=== PATIENT | female | born 1965 | race Caucasian/White ===

== ENCOUNTER 2016-04-17 09:28 | Day surgery (SDC) | payer BC ==
[2016-04-16 08:25] VITALS: BMI 25.8
--- NOTE | 2016-04-17 09:18 | P.GSHP ---
History of Present Illness H&P Date: 04/17/16 CHIEF COMPLAINT: GERD HISTORY OF PRESENT ILLNESS: The patient is a 51-year-old female who presents reports gastroesophageal reflux disease. Upper endoscopy was offered for further evaluation and management. PAST MEDICAL HISTORY: Please see list. PAST SURGICAL HISTORY: Please see list. MEDICATIONS: Please see list. ALLERGIES: Please see list. SOCIAL HISTORY: No illicit drug use FAMILY HISTORY: No reports of Crohn disease or ulcerative colitis. REVIEW OF ORGAN SYSTEMS: CONSTITUTIONAL: No reports of fevers or chills. GI: Denies any blood in stools or constipation. PHYSICAL EXAM: VITAL SIGNS: Stable GENERAL: Well-developed and pleasant in no acute distress. HEENT: No scleral icterus. Extraocular movements grossly intact. Moist buccal mucosa. NECK: Supple without lymphadenopathy. CHEST: Unlabored respirations. Equal bilateral excursions. CARDIOVASCULAR: Regular rate and rhythm. Distal 2+ pulses. ABDOMEN: Soft, nondistended. MUSCULOSKELETAL: No clubbing, cyanosis, or edema. ASSESSMENT: 1. Gastroesophageal reflux disease PLAN: 1. Recommend proceeding with an upper endoscopy Past Medical History Past Medical History: GERD/Reflux Additional Past Medical History / Comment(s): CONSTIPATION, BLOATING History of Any Multi-Drug Resistant Organisms: None Reported Past Surgical History: Hysterectomy Additional Past Surgical History / Comment(s): JAW SX,. EGD. COLONOSCOPY Past Anesthesia/Blood Transfusion Reactions: Postoperative Nausea & Vomiting ( PONV) Past Psychological History: Anxiety, Depression Smoking Status: Former smoker Past Alcohol Use History: None Reported Additional Past Alcohol Use History / Comment(s): QUIT SMOKING 2005, SMOKED LESS THAN 1/2 PPD FROM AGE 22 (1986) Past Drug Use History: None Reported - Past Family History Mother Family Medical History: No Reported History Medications and Allergies Home Medications Medication Instructions Recorded Confirmed Type FLUoxetine HCL [PROzac] 40 mg PO HS 12/29/15 04/16/16 History Levothyroxine Sodium [Synthroid] 125 mcg PO DAILY 12/29/15 04/16/16 History SUMAtriptan SUCCINATE [Imitrex] 100 mg PO DIRECTED PRN 12/29/15 04/16/16 History Temazepam [Restoril] 7.5 mg PO HS PRN 12/29/15 04/16/16 History B Complex-Vit C-Vit E-Zinc [Z-Bec] 1 tab PO DAILY 03/28/16 04/16/16 History Hair Skin Nail Gummy 1 tab PO DAILY 03/28/16 04/16/16 History Allergies Allergy/AdvReac Type Severity Reaction Status Date / Time No Known Allergies Allergy Verified 04/16/16 08:17
[~2016-04-17 09:28] MED LIST: LACTATED RINGERS 1,000 ML IV SCH; LIDOCAINE 1% 20 ML VIAL (10MG/ML) FOR IV START INTRADERMA PRN
[2016-04-17 10:12] VITALS: RESP 16; TEMP 98.1
[2016-04-17] MEDS ORDERED: PROPOFOL 10 MG/ML 20 ML VIAL IV ONE (10:13)
[2016-04-17] MEDS ORDERED: LIDOCAINE 1% INJ 10MG/ML (20 ML MDV) ONE (10:13)
[2016-04-17] MEDS ORDERED: ONDANSETRON 4 MG/2 ML VIAL ONE (10:13)
--- NOTE | 2016-04-17 10:26 | P.PCN ---
Date of Procedure: 04/17/16 Description of Procedure: PREOPERATIVE DIAGNOSIS: Gastroesophageal reflux disease. Epigastric abdominal pain. Chronic nausea. POSTOPERATIVE DIAGNOSIS: Erosive esophagitis. Diaphragmatic hiatal hernia. Gastroesophageal reflux disease. Diffuse gastritis, superficial, chronic. Epigastric abdominal pain. Chronic nausea. OPERATION: Esophagogastroduodenoscopy with biopsies along antrum and esophagus. SURGEON: Nancy Ray MD ANESTHESIA: MAC. INDICATIONS: The patient is a 51-year-old female who presents with a history of reflux disease. Benefits and risks of the procedure were described. Informed consent was obtained. DESCRIPTION: The patient was brought into the endoscopy suite and laid in the left lateral decubitus position. An Olympus gastroscope was passed along the posterior oropharynx down to the distal esophagus where the squamocolumnar junction was encountered at 34 cm from the incisors. The stomach was entered and moderate bile reflux was found. Additional findings are listed below. Biopsies with cold forceps were obtained of the antrum. The first through third portion of the duodenum was examined and unremarkable. Retroflexion of the scope confirmed Hill grade 4 lower esophageal valve. The squamocolumnar junction demostrated LA grade B erosive esophagitis. The stomach was desufflated. The patient tolerated the procedure well. FINDINGS: Squamocolumnar junction 34 cm from the incisors. Diaphragmatic hiatus at 37 cm from the incisors. Hiatal hernia, 3 cm, fixed. Hill grade 4 lower esophageal valve. LA grade B erosive esophagitis. No active duodenitis. Diffuse gastritis. RECOMMENDATIONS: Recommend check magnesium level. Further recommendations pending results of pathology report. Upper endoscopy as needed.
[2016-04-17 10:41] VITALS: PULSE 75
[2016-04-17 11:41] VITALS: BP 109/69
== END 2016-04-17 11:36 | disposition home or self-care (01) ==
LOC: ORWHC2ENDO 09:28
PROVIDERS: ATTEND Surgery Plastic and Reconstructive Surgery
DX: K21.9 Gastro-esophageal reflux disease without esophagitis (principal); K22.10 Ulcer of esophagus without bleeding; K44.9 Diaphragmatic hernia without obstruction or gangrene; K29.50 Unspecified chronic gastritis without bleeding; R10.13 Epigastric pain; Z87.891 Personal history of nicotine dependence; F41.9 Anxiety disorder, unspecified; F32.9 Major depressive disorder, single episode, unspecified; Z79.02 Long term (current) use of antithrombotics/antiplatelets; Z79.899 Other long term (current) drug therapy
CPT/HCPCS: 88305; 84425; 83735; 88342; 43239; J2405; J2001; J2704

== ENCOUNTER → 2016-05-28 | Outpatient (CLI) | payer BC | LOC: LABWHC1 10:18 | PROVIDERS: ATTEND Surgery Plastic and Reconstructive Surgery | DX: E03.9 Hypothyroidism, unspecified (principal) | CPT/HCPCS: 36415; 84439; 84443 ==

== ENCOUNTER 2016-07-07 09:55 | Emergency (ER) | payer BC ==
[2016-07-07 10:00] VITALS: BP 125/74; PULSE 90; RESP 20; TEMP 97.5
[2016-07-07] MEDS ORDERED: PROPARACAINE 0.5% OPHTH DROPS 15 ML BTL RIGHT EYE STA (10:21)
--- NOTE | 2016-07-07 10:23 | ED ---
Eye Problem HPI - General Chief complaint: Eye Problems Stated complaint: Pain in eye Time Seen by Provider: 07/07/16 10:10 Source: patient, RN notes reviewed Mode of arrival: ambulatory Limitations: no limitations - History of Present Illness Initial comments: 51-year-old female presents to the emergency department with a chief complaint of right thigh pain. Patient states she has a history of problems with the right eye. Patient's states that she is on maintenance erythromycin and she sees the eye doctors who continued to treat her for cold sores and ulcers to the eye. Patient states that today she started to develop this pain to the eye changes in vision which is typical of her flareup of her chronic condition. Patient states she's been dealing with this for about 2 years. Patient states typically she gets a freezing drop that makes her eye feel better if she can get home and that she sees her doctor in the morning. Patient states she simply would just like a freeze pop. Patient states is exactly like her typical flareup and she just needs help getting home so that she can see the doctor. Patient states there is no trauma or injury. Patient states started TODAY. HE STATES MUCH LIKE HER TYPICAL EYE PROBLEMS.Patient denies any recent fever, chills, shortness of breath, chest pain, back pain, abdominal pain, nausea vomiting, numbness or tingling, dysuria or hematuria, constipation or diarrhea, headaches, or any other current symptoms. - Related Data Home Medications Medication Instructions Recorded Confirmed FLUoxetine HCL [PROzac] 40 mg PO HS 12/29/15 04/17/16 Levothyroxine Sodium [Synthroid] 125 mcg PO DAILY 12/29/15 04/17/16 SUMAtriptan SUCCINATE [Imitrex] 100 mg PO DIRECTED PRN 12/29/15 04/17/16 Temazepam [Restoril] 7.5 mg PO HS PRN 12/29/15 04/17/16 B Complex-Vit C-Vit E-Zinc [Z-Bec] 1 tab PO DAILY 03/28/16 04/17/16 Hair Skin Nail Gummy 1 tab PO DAILY 03/28/16 04/16/16 Previous Rx's Medication Instructions Recorded NIFEdipine 20 mg PO TID PRN #30 cap 04/30/16 Polyethylene Glycol 3350 [Miralax] 17 gm PO DAILY #255 gm 04/30/16 Allergies Allergy/AdvReac Type Severity Reaction Status Date / Time No Known Allergies Allergy Verified 07/07/16 10:00 Review of Systems ROS Statement: Those systems with pertinent positive or pertinent negative responses have been documented in the HPI. ROS Other: All systems not noted in ROS Statement are negative. Past Medical History Past Medical History: GERD/Reflux Additional Past Medical History / Comment(s): CONSTIPATION, BLOATING History of Any Multi-Drug Resistant Organisms: None Reported Past Surgical History: Hysterectomy Additional Past Surgical History / Comment(s): JAW SX,. EGD. COLONOSCOPY Past Anesthesia/Blood Transfusion Reactions: Postoperative Nausea & Vomiting ( PONV) Past Psychological History: Anxiety, Depression Smoking Status: Former smoker Past Alcohol Use History: None Reported Additional Past Alcohol Use History / Comment(s): QUIT SMOKING 2005, SMOKED LESS THAN 1/2 PPD FROM AGE 22 (1986) Past Drug Use History: None Reported - Past Family History Mother Family Medical History: No Reported History General Exam Limitations: no limitations General appearance: alert, in no apparent distress Head exam: Present: atraumatic, normocephalic, normal inspection Eye exam: Present: normal appearance, PERRL, EOMI. Absent: scleral icterus, conjunctival injection, periorbital swelling Expanded Visual acuity (R) = 20/: 50 Visual acuity (L) = 20/: 25 ENT exam: Present: normal exam, mucous membranes moist Neck exam: Present: normal inspection. Absent: tenderness, meningismus, lymphadenopathy Respiratory exam: Present: normal lung sounds bilaterally. Absent: respiratory distress, wheezes, rales, rhonchi, stridor Cardiovascular Exam: Present: regular rate, normal rhythm, normal heart sounds. Absent: systolic murmur, diastolic murmur, rubs, gallop, clicks Neurological exam: Present: alert, oriented X3 Psychiatric exam: Present: normal affect, normal mood Skin exam: Present: warm, dry, intact, normal color. Absent: rash Course Vital Signs 07/07/16 09:58 Temperature 97.5 F L Pulse Rate 90 Respiratory 20 Rate Blood Pressure 125/74 O2 Sat by Pulse 98 Oximetry Medical Decision Making - Medical Decision Making 51-year-old female presents emergency Department chief complaint of right eye pain. This time patient was given proparacaine which did help her symptoms. We then underwent a with lamp examination. At this time we discussed continuing to use her home erythromycin and follow-up with her eye doctor in the morning. We did give her on-call ophthalmology as well and today she cannot get into her own doctor. We discussed return parameters were discussed expected outcome and all the patient's questions. She stated that she understood and is in agreement plan. This time she will be discharged home. Disposition Clinical Impression: Acute right eye pain Disposition: HOME SELF-CARE Condition: Stable Instructions: Eye Lubricant (Into the eye) Additional Instructions: Please use medication as discussed. Please follow up with family doctor if symptoms have not improved over the next two days. Please return to the emergency room if your symptoms increase or worsen or for any other concerns. Referrals: Ayaan Morales MD [Primary Care Provider] - 1-2 days
== END 2016-07-07 10:44 | disposition home or self-care (01) ==
LOC: EC 09:55
DX: H57.11 Ocular pain, right eye (principal); M79.651 Pain in right thigh; F41.9 Anxiety disorder, unspecified; F32.9 Major depressive disorder, single episode, unspecified; Z87.891 Personal history of nicotine dependence; Z79.899 Other long term (current) drug therapy
CPT/HCPCS: 99283

== ENCOUNTER → 2016-10-09 | Outpatient (CLI) | payer BC ==
--- NOTE | 2016-10-09 15:00 | MR ---
EXAMINATION TYPE: MR brain wo/w con DATE OF EXAM: 10/09/2016 COMPARISON: NONE HISTORY: Headaches, R 51, H 57.13 TECHNIQUE: Multiplanar, multisequence images of the brain and brainstem is performed without and with IV contras t, utilizing 15 mL intravenous MultiHance . FINDINGS: Diffusion weighted images demonstrate no evidence of a recent infarct or other diffusion ab normality. There is no extra-axial fluid collection. Periventricular white matter shows hyperintens ities and T2 and inversion recovery sequences in the frontoparietal regions, there are approximately 10-20 lesions, the largest in the left frontal lobe measures 8 to 9 mm in largest on the right in the frontal lobe measures approximately 7 mm. There is no abnormal enhancement following contrast admini stration. The ventricular system and cisternal spaces are normal in size and appearance. The brain v olume is age appropriate. At the upper aspect of the brain on inversion recovery sequences suspect there is artifact over the p osterior parietal region on the right, findings thought possibly related to field inhomogeneity. Midline structures demonstrate normal morphology. The craniocervical junction appears within normal limits. Post contrast images demonstrate no abnormal enhancement. The dural venous sinuses appear pa tent. The visualized sinuses are clear and the globes are intact. IMPRESSION: Nonspecific white matter demyelination. Consider multiple sclerosis. Suspect there is art ifact described.
== END | disposition home or self-care (01) ==
LOC: RADMRIMAIN 13:11
PROVIDERS: ATTEND Ophthalmology
DX: G37.9 Demyelinating disease of central nervous system, unspecified (principal); G35 Multiple sclerosis; R90.82 White matter disease, unspecified; H57.13 Ocular pain, bilateral
CPT/HCPCS: 70553; A9577

== ENCOUNTER 2017-01-02 09:56 | Day surgery (SDC) | payer BC ==
[2017-01-01 08:32] VITALS: BMI 25.8
[~2017-01-02 09:56] MED LIST changes: -LIDOCAINE 1% 20 ML VIAL (10MG/ML) FOR IV START INTRADERMA PRN
[2017-01-02 10:22] VITALS: RESP 16; TEMP 97.9
[2017-01-02] MEDS ORDERED: LIDOCAINE 1% 20 ML VIAL (10MG/ML) FOR IV START INTRADERMA ONE (10:45)
--- NOTE | 2017-01-02 11:18 | P.PCN ---
Date of Procedure: 01/02/17 Procedure(s) Performed: Procedure=1-lumbar puncture . Preoperative diagnoses= multiple sclerosis. Postoperative diagnosis= multiple sclerosis. Anesthesia= IV sedation with Versed 2 mg and fentanyl 100 mcg , and local lidocaine infiltration 1% 2 mL for skin and subcu infiltration. Condition= stable. Complications=none. Indication for the procedure= patient with a history of symptoms suggestive of multiple sclerosis and she was referred to have a lumbar puncture for diagnostic study procedure risk and benefits and alternatives discussed with the patient and she agreed with the preceding, Description of the procedure= patient in the procedure room sitting position and monitors applied, the back prepped with chlorhexidine x 3, sterile technique, local infiltration of the skin and subcu interstitial with lidocaine 1% 2 mL, then 22-gauge quickie Needle advanced slowly at L4- 5 interlaminar space, the cerebrospinal fluid was clear, and no heme no paresthesia, a total of 10 mL of clear cerebrospinal fluid collected in 4 different tubes, the needle removed, Band-Aid applied , patient tolerated the procedure well without any complications, and further management as per her neurologist
[2017-01-02] MEDS ORDERED: IV FLUID CONTINUATION 1,000 ML IV ONE (11:36)
[2017-01-02 11:56] VITALS: BP 99/60; PULSE 75
[2017-01-02 12:28] LABS: ALT 89 U/L (9-52); AST 52 U/L (14-36)
[2017-01-02 12:31] LABS: Rheumatoid Factor, Qnt <9 IU/mL (<12)
[2017-01-02 12:35] LABS: Glucose,CSF 47 mg/dL (40-70)
[2017-01-02 13:59] LABS: Appearance,CSF Clear
[2017-01-02 15:41] LABS: Treponemal Ab Non-Reactive (Non-Reactive)
[2017-01-02 17:21] LABS: ANA w/Reflex to Titer NEGATIVE (NEGATIVE); RNP AB Interpretation NEGATIVE (NEGATIVE)
[2017-01-03 12:08] LABS: Lyme IgG/IgM Interp NEGATIVE (NEGATIVE)
[2017-01-04 20:52] LABS: Lyme Specimen Source Not Provided
[2017-01-06 13:31] LABS: Immunoglobulin G 928 mg/dL (700 - 1600)
== END 2017-01-02 12:15 | disposition home or self-care (01) ==
LOC: ORPAIN 09:56
PROVIDERS: ATTEND Specialist
DX: G35 Multiple sclerosis (principal); E03.9 Hypothyroidism, unspecified
CPT/HCPCS: 36415; 62270; 82040; 82042; 82164; 82306; 82784; 82945; 83873; 83916; 84157; 84439; 84443; 84450; 84460; 85613; 85730; 85732; 86038; 86225; 86235; 86431; 86592; 86618; 86780; 87476; 88108; 89050; 99152

== ENCOUNTER → 2017-01-02 | Outpatient (CLI) | payer BC | END | disposition home or self-care (01) | LOC: LABWHC1 09:39 | PROVIDERS: ATTEND Psychiatry & Neurology Neurology | DX: G35 Multiple sclerosis (principal); E55.9 Vitamin D deficiency, unspecified | CPT/HCPCS: 36415; 82306; 88108 ==

== ENCOUNTER → 2017-07-26 | Outpatient (CLI) | payer BC | END | disposition home or self-care (01) | LOC: LABWHC1 09:43 | PROVIDERS: ATTEND Family Medicine | DX: Z53.9 Procedure and treatment not carried out, unspecified reason (principal) ==

== ENCOUNTER → 2017-08-11 | Outpatient (CLI) | payer BC ==
[2017-08-11 09:40] LABS: Basophils # (A) 0.1 k/uL (0-0.2); Basophils % (A) 1 %; Eosinophils # (A) 0.3 k/uL (0-0.7); Eosinophils % (A) 4 %; HCT 39.8 % (34.0-46.0); Lymphocytes # (A) 1.8 k/uL (1.0-4.8); Lymphocytes % (A) 25 %; MCH 31.8 pg (25.0-35.0); MCHC 32.8 g/dL (31.0-37.0); MCV 96.9 fL (80.0-100.0); Mean Platelet Volume 7.8; Monocytes # (A) 0.5 k/uL (0-1.0); Monocytes % (A) 6 %; Neutrophils # (A) 4.4 k/uL (1.3-7.7); Neutrophils % (A) 62 %; Platelet Count 370 k/uL (150-450); RBC 4.11 m/uL (3.80-5.40); RDW 12.7 % (11.5-15.5); WBC 7.2 k/uL (3.8-10.6)
[2017-08-11 09:44] LABS: ALT 82 U/L (9-52); AST 49 U/L (14-36); Albumin 4.4 g/dL (3.5-5.0); Alkaline Phosphatase 159 U/L (38-126); Anion Gap 14 mmol/L; Blood Urea Nitrogen 17 mg/dL (7-17); Calcium 9.4 mg/dL (8.4-10.2); Carbon Dioxide 23 mmol/L (22-30); Chloride 107 mmol/L (98-107); Cholesterol 303 mg/dL (<200); Glucose 80 mg/dL (74-99); HDL Cholesterol 55 mg/dL (40-60); LDL Cholesterol,Calculated 181 mg/dL (0-99); Magnesium 2.2 mg/dL (1.6-2.3); Potassium 4.5 mmol/L (3.5-5.1); Sodium 144 mmol/L (137-145); Total Bilirubin 0.3 mg/dL (0.2-1.3); Total Protein 6.8 g/dL (6.3-8.2); Triglycerides 335 mg/dL (<150)
[2017-08-11 09:54] LABS: T4, Free (Free Thyroxine) 0.89 ng/dL (0.78-2.19)
== END | disposition home or self-care (01) ==
LOC: LABWHC1 08:08
PROVIDERS: ATTEND Family Medicine
DX: E55.9 Vitamin D deficiency, unspecified (principal); B00.52 Herpesviral keratitis; G43.909 Migraine, unspecified, not intractable, without status migrainosus; Z71.3 Dietary counseling and surveillance
CPT/HCPCS: 36415; 80053; 80061; 83735; 84439; 84443; 85025

== ENCOUNTER → 2017-09-23 | Outpatient (CLI) | payer BC ==
[2017-09-23 09:07] LABS: Albumin 4.2 g/dL (3.5-5.0); Bilirubin, Delta 0.2 mg/dL (0.0-0.2); Total Bilirubin 0.2 mg/dL (0.2-1.3); Total Protein 6.7 g/dL (6.3-8.2)
[2017-09-23 09:24] LABS: T4, Free (Free Thyroxine) 0.78 ng/dL (0.78-2.19)
== END | disposition home or self-care (01) ==
LOC: LABWHC1 07:10
PROVIDERS: ATTEND Family Medicine
DX: E03.9 Hypothyroidism, unspecified (principal); E78.5 Hyperlipidemia, unspecified; R94.5 Abnormal results of liver function studies; Z79.899 Other long term (current) drug therapy
CPT/HCPCS: 36415; 80076; 84439; 84443; 84481

== ENCOUNTER → 2017-10-30 | Outpatient (CLI) | payer BC ==
--- NOTE | 2017-10-31 11:20 | MM ---
Reason for exam: screening (asymptomatic). Last mammogram was performed 4 years and 6 months ago. History: Patient is postmenopausal. Physical Findings: A clinical breast exam by your physician is recommended on an annual basis and results should be correlated with mammographic findings. MG Screening Mammo w CAD Bilateral CC and MLO view(s) were taken. Prior study comparison: April 29, 2013, bilateral digital screening mammo w/CAD. April 09, 2011, bilateral digital screening mammo w/CAD. The breast tissue is heterogeneously dense. This may lower the sensitivity of mammography. No suspicious abnormality. No significant changes when compared with prior studies. ASSESSMENT: Negative, BI-RAD 1 RECOMMENDATION: Routine screening mammogram of both breasts in 1 year.
== END | disposition home or self-care (01) ==
LOC: RADMAMWWP 14:36
PROVIDERS: ATTEND Family Medicine
DX: Z12.31 Encounter for screening mammogram for malignant neoplasm of breast (principal)
CPT/HCPCS: 77067

== ENCOUNTER 2022-07-11 14:01 | Emergency (ER) | payer BC ==
[2022-07-11 14:17] VITALS: BP 98/63; PULSE 97; RESP 20; TEMP 97.9
[2022-07-11] MEDS ORDERED: ACETAMINOPHEN TAB 500 MG TAB PO STA (14:45)
[2022-07-11] MEDS ORDERED: LIDOCAINE 1% INJ 10MG/ML (30 ML VIAL-PF) SQ ONE (14:46)
--- NOTE | 2022-07-11 15:21 | CT ---
EXAMINATION TYPE: CT brain meri zuniga con DATE OF EXAM: 07/11/2022 COMPARISON: None HISTORY: fall CT DLP: combined DLP 1152.[address] of the brain was performed. The ventricles, basal cisterns and sulci overlying the cerebral convexities demonstrate mild enlargem ent. There is no evidence for intracranial hemorrhage or sulcal effacement. There is decreased attenuatio n about the periventricular white matter and deep white matter of both cerebral hemispheres, compatib le with chronic small vessel ischemia. No mass effects are seen. If symptoms persist consider MRI. Osseous calvarium is intact. IMPRESSION: 1. Age related atrophic and chronic small vessel ischemic change without acute intracranial process seen at this time. CT Cervical Spine: Unenhanced CT of the cervical spine was performed with bone and soft tissue window settings submitted . Coronal and sagittal reconstruction is obtained. There is normal alignment and prevertebral soft tissues. No evidence for acute cervical fracture . Scattered degenerative disc disease and spondylosis. Biapical scarring. IMPRESSION: 1. No evidence for acute fracture or subluxation of the cervical spine.
--- NOTE | 2022-07-11 15:37 | CT ---
EXAMINATION TYPE: CT facial bones wo con DATE OF EXAM: 07/11/2022 COMPARISON: None HISTORY: fall, pain CT DLP: combined DLP 1152.3 mGycm Automated exposure control for dose reduction was used. TECHNIQUE: CT scan of the sinuses is performed without contrast, axial images are obtained, coronal r eformatted images are also reviewed. FINDINGS: The paranasal sinuses including the frontal, ethmoid, sphenoid, and maxillary sinuses bila terally are well-aerated without abnormal opacification. The ostiomeatal complex is patent bilateral ly on the coronal images. Small bimal bullosa on the right and moderate size bimal bullosa on the l eft. Visualized portion of mastoid air cells show no abnormal opacification. The globes are intact bilate rally. There is hypertrophic arthropathy of the facet joints greater on the left. There is a small amount of subcutaneous edema and emphysema along the lateral margin of the left orbit. IMPRESSION: 1. Soft tissue injury along the lateral margin of the left orbit
--- NOTE | 2022-07-11 15:40 | XR ---
EXAMINATION TYPE: XR shoulder complete LT DATE OF EXAM: 07/11/2022 COMPARISON: NONE HISTORY: Pain TECHNIQUE: Three views are submitted. FINDINGS: The osseous structures are intact. There is no acute fracture or dislocation. The AC joint arthropa thy. Surgical clips left axilla. Soft tissue edema overlying the AC joint. IMPRESSION: 1. No acute process.
--- NOTE | 2022-07-11 15:51 | ED ---
Fall HPI - General Chief Complaint: Fall Stated Complaint: fall - head laceration Time Seen by Provider: 07/11/22 14:28 Source: patient, family Mode of arrival: wheelchair - History of Present Illness Initial Comments: Patient is a 57-year-old female who presents to the emergency department for a fall. Patient was sunbathing in a chair laying on her back. She went to flip onto her abdomen when she landed on the concrete. Patient hit the left side of her face on the concrete. There was potential loss of consciousness for a couple seconds. Patient is not on blood thinners. Patient reports pain in her face where the impact was. She has swelling and bruising to periorbital region of left eye with small laceration. Tetanus is up-to-date. No eye pain, redness. No double vision, blurry vision. No nausea or vomiting. Tetanus is up-to-date. Patient also has pain in her left shoulder with abrasion. She has abrasion to right knee with minimal pain. - Related Data Home Medications Medication Instructions Recorded Confirmed FLUoxetine HCL [PROzac] 40 mg PO HS 12/29/15 01/01/17 Levothyroxine Sodium [Synthroid] 125 mcg PO DAILY 12/29/15 01/01/17 SUMAtriptan succinate [Imitrex] 100 mg PO DIRECTED PRN 12/29/15 01/02/17 Temazepam [Restoril] 7.5 mg PO HS PRN 12/29/15 01/01/17 B Complex-Vit C-Vit E-Zinc [Z-Bec] 1 tab PO DAILY 03/28/16 01/01/17 Hair Skin Nail Gummy 1 tab PO DAILY 03/28/16 01/01/17 Previous Rx's Medication Instructions Recorded NIFEdipine [Procardia] 20 mg PO TID PRN #30 cap 04/30/16 Allergies Allergy/AdvReac Type Severity Reaction Status Date / Time No Known Allergies Allergy Verified 01/06/17 11:19 Review of Systems ROS Statement: Those systems with pertinent positive or pertinent negative responses have been documented in the HPI. ROS Other: All systems not noted in ROS Statement are negative. Past Medical History Past Medical History: GERD/Reflux, Neurologic Disorder, Thyroid Disorder Additional Past Medical History / Comment(s): migraines History of Any Multi-Drug Resistant Organisms: None Reported Past Surgical History: Hysterectomy Additional Past Surgical History / Comment(s): JAW SX,. EGD. COLONOSCOPY Past Anesthesia/Blood Transfusion Reactions: Postoperative Nausea & Vomiting (PONV) Past Psychological History: Anxiety, Depression Past Alcohol Use History: None Reported Past Drug Use History: None Reported - Past Family History Mother Family Medical History: Cancer General Exam Limitations: no limitations General appearance: alert, in no apparent distress Head exam: Present: atraumatic, normocephalic, normal inspection Eye exam: Present: normal appearance, PERRL, EOMI, periorbital swelling (moderate swelling + bruising, mostly in the 4-5 oclock region with 1cm laceration), other. Absent: scleral icterus, conjunctival injection Neck exam: Present: normal inspection, full ROM. Absent: tenderness, meningismus, lymphadenopathy Respiratory exam: Present: normal lung sounds bilaterally. Absent: respiratory distress, wheezes, rales, rhonchi, stridor Cardiovascular Exam: Present: regular rate, normal rhythm, normal heart sounds. Absent: systolic murmur, diastolic murmur, rubs, gallop, clicks Left Shoulder Exam: Present: full ROM, abrasion. Absent: tenderness, swelling, laceration, ecchymosis, crepitus, dislocation, erythema, tenderness over AC joint Neuro motor exam: Present: wrist extension intact, thumb opposition intact, thumb IP flexion intact, thumb adduction intact, fingers 2-5 abduction intact Vascular: Present: normal capillary refill Right Upper Leg exam: Present: normal inspection, full ROM. Absent: tenderness, swelling Knee exam: Present: full ROM, abrasion. Absent: tenderness, swelling Lower Leg exam: Present: normal inspection, full ROM. Absent: tenderness, swelling Neurological exam: Present: alert, oriented X3, CN II-XII intact Psychiatric exam: Present: normal affect, normal mood Skin exam: Present: warm, dry, intact, normal color. Absent: rash Course Vital Signs 07/11/22 14:13 Temperature 97.9 F Pulse Rate 97 Respiratory 20 Rate Blood Pressure 98/63 O2 Sat by Pulse 95 Oximetry Procedures - Laceration Laceration #1 Indication: laceration Site: face Size (cm): 1 Description: irregular Anesthesia Technique: local infiltration Pre-repair: wound explored, irrigated extensively Type of Sutures: nylon Size of Sutures: 6-0 Technique: simple, interrupted Patient Tolerated Procedure: well, no complications Medical Decision Making - Medical Decision Making Was pt. sent in by a medical professional or institution (AMANDA Zuluaga, SCHOOL LIBRARIAN, urgent care, hospital, or group home...) When possible be specific @ -[No] Did you speak to anyone other than the patient for history (EMS, parent, family, police, friend...)? What history was obtained from this source @ -[No] Did you review nursing and triage notes (agree or disagree)? Why? @ -[I reviewed and agree with nursing and triage notes] Were old charts reviewed (outside hosp., previous admission, EMS record, old EKG, old radiological studies, urgent care reports/EKG's, group home records)? Report findings @ -[No old charts were reviewed] Differential Diagnosis (chest pain, altered mental status, abdominal pain women, abdominal pain men, vaginal bleeding, weakness, fever, dyspnea, syncope, headache, dizziness, GI bleed, back pain, seizure, CVA, palpatations, mental health)? @ -Differential Headache: Migraine, tension, cluster, carbon monoxide, central venous thrombosis, pension karma temporal arteritis, acute closure glaucoma, intercranial hemorrhage, mastoiditis, sinusitis, head injury, this is not meant to be an all-inclusive list. EKG interpreted by me (3pts min.). @ -[As above] X-rays interpreted by me (1pt min.). @ -Yes, left shoulder x-ray negative for fracture and dislocation CT interpreted by me (1pt min.). @ -Yes, CT brain and C-spine negative for acute process. CT of the facial bone show soft tissue injury without fracture. U/S interpreted by me (1pt. min.). @ -[None done] What testing was considered but not performed or refused? (CT, X-rays, U/S, labs)? Why? @ -[None] What meds were considered but not given or refused? Why? @ -[None] Did you discuss the management of the patient with other professionals (professionals i.e. AMANDA Zuluaga, SCHOOL LIBRARIAN, lab, RT, psych nurse, social worker aide, brick yard hand, teacher, community reinvestment act officer, director of casework department)? Give summary @ -[No] Was smoking cessation discussed for >3mins.? @ -[No] Was critical care preformed (if so, how long)? @ -[No] Were there social determinants of health that impacted care today? How? (Homelessness, low income, unemployed, alcoholism, drug addiction, transportation, low edu. Level, literacy, decrease access to med. care, assisted, rehab)? @ -[No] Was there de-escalation of care discussed even if they declined (Discuss DNR or withdrawal of care, Hospice)? DNR status @ -[No] What co-morbidities impacted this encounter? (DM, HTN, Smoking, COPD, CAD, Cancer, CVA, ARF, Chemo, Hep., AIDS, mental health diagnosis, sleep apnea, morbid obesity)? @ -[None] Was patient admitted / discharged? Hospital course, mention meds given and route, prescriptions, significant lab abnormalities, going to OR and other pertinent info. @ -Patient presenting with facial injury after fall. Patient has left periorbital swelling and ecchymosis mostly at the 4 to 5 o'clock position. She has small laceration which was irrigated thoroughly and well approximated with one suture. Tetanus update is not indicated. Left shoulder xray negative for fracture and dislocation. CT brain and C-spine negative for acute process. CT of the facial bones shows soft tissue injury without fracture. Pain significantly improved Tylenol. Patient is alert and oriented, no vomiting. She is in stable medical condition for discharge. Wound care discussed in detail. Undiagnosed new problem with uncertain prognosis? @ -[No] Drug Therapy requiring intensive monitoring for toxicity (Heparin, Nitro, Insulin, Cardizem)? @ -[No] Were any procedures done? @ Yes, laceration repair Diagnosis/symptom? @ -Head injury, laceration, fall Acute, or Chronic, or Acute on Chronic? @ -Acute Uncomplicated (without systemic symptoms) or Complicated (systemic symptoms)? @ -uncomplicated Side effects of treatment? @ -[No] Exacerbation, Progression, or Severe Exacerbation? @ -[No] Poses a threat to life or bodily function? How? (Chest pain, [place], [place], pneumonia, PE, COPD, DKA, ARF, appy, cholecystitis, CVA, Diverticulitis, Homicidal, Suicidal, threat to staff... and all critical care pts) @ -[No] Dr. Morton is my attending Disposition Clinical Impression: Fall, Head injury, Laceration Disposition: HOME SELF-CARE Condition: Good Instructions (If sedation given, give patient instructions): Care For Your Stitches (ED), Laceration (ED), Concussion (ED), Fall Prevention (ED) Additional Instructions: Ice injury especially in the next 2 days. Keep wound clean and dry. Return for suture removal in 5 days. Report anti-inflammatory medications such as Motrin, Aleve, Advil, Excedrin for the next 48 hours due to head injury. Take Tylenol for pain. Follow-up with primary care provider in one to 2 days. Report back to the emergency department if you experience new, concerning, or worsening symptoms. Is patient prescribed a controlled substance at d/c from ED?: No Referrals: Ayaan Morales MD [Primary Care Provider] - 1-2 days
== END 2022-07-11 16:21 | disposition home or self-care (01) ==
LOC: EC 14:01
DX: S01.81XA Laceration without foreign body of other part of head, initial encounter (principal); E07.9 Disorder of thyroid, unspecified; F41.9 Anxiety disorder, unspecified; F32.A Depression, unspecified; Z79.890 Hormone replacement therapy; W07.XXXA Fall from chair, initial encounter; Y31.XXXA Falling, lying or running before or into moving object, undetermined intent, initial encounter
CPT/HCPCS: 73030; 72125; 70486; 70450; 99284; 12011; J2001

== ENCOUNTER 2024-03-07 15:43 | Emergency (ER) | payer BC ==
[2024-03-07 15:47] VITALS: RESP 18
[2024-03-07] MEDS: LIDOCAINE 1% INJ 10MG/ML (20 ML MDV) SQ ONE (16:21)
--- NOTE | 2024-03-07 16:26 | ED ---
General Adult HPI - General Chief complaint: Skin/Abscess/Foreign Body Stated complaint: Infected finger Time Seen by Provider: 03/07/24 16:05 Source: patient Mode of arrival: ambulatory Limitations: no limitations - History of Present Illness Initial comments: 58-year-old female presenting with chief complaint of pain to the right index finger. This has been ongoing for about 3 days. She has redness tenderness and swelling near the tip of the finger. There is also a pustule visible along the nail. She was seen at Dr. Prakash's office on , started on Bactrim. Now having some pain that travels down the finger. No fevers. History of MRSA. - Related Data Home Medications Medication Instructions Recorded Confirmed FLUoxetine HCL [PROzac] 40 mg PO HS 12/29/15 01/01/17 Levothyroxine Sodium [Synthroid] 125 mcg PO DAILY 12/29/15 01/01/17 SUMAtriptan succinate [Imitrex] 100 mg PO DIRECTED PRN 12/29/15 01/02/17 Temazepam [Restoril] 7.5 mg PO HS PRN 12/29/15 01/01/17 B Complex-Vit C-Vit E-Zinc [Z-Bec] 1 tab PO DAILY 03/28/16 01/01/17 Hair Skin Nail Gummy 1 tab PO DAILY 03/28/16 01/01/17 Previous Rx's Medication Instructions Recorded NIFEdipine [Procardia] 20 mg PO TID PRN #30 cap 04/30/16 Allergies Allergy/AdvReac Type Severity Reaction Status Date / Time No Known Allergies Allergy Verified 03/07/24 15:47 Review of Systems ROS Statement: Those systems with pertinent positive or pertinent negative responses have been documented in the HPI. ROS Other: All systems not noted in ROS Statement are negative. Past Medical History Past Medical History: GERD/Reflux, Neurologic Disorder, Thyroid Disorder Additional Past Medical History / Comment(s): migraines History of Any Multi-Drug Resistant Organisms: None Reported Past Surgical History: Hysterectomy Additional Past Surgical History / Comment(s): JAW SX,. EGD. COLONOSCOPY Past Anesthesia/Blood Transfusion Reactions: Postoperative Nausea & Vomiting (PONV) Past Psychological History: Anxiety, Depression Past Alcohol Use History: None Reported Past Drug Use History: None Reported - Past Family History Mother Family Medical History: Cancer General Exam Limitations: no limitations General appearance: alert, in no apparent distress Head exam: Present: atraumatic, normocephalic, normal inspection Eye exam: Present: normal appearance, EOMI Neck exam: Present: normal inspection. Absent: meningismus Respiratory exam: Absent: respiratory distress Right Hand Wrist exam: Present: erythema (Swelling and tenderness to the second finger particularly the distal end) Neurological exam: Present: alert, oriented X3 Psychiatric exam: Present: normal affect, normal mood Skin exam: Present: erythema Course Vital Signs 03/07/24 03/07/24 15:44 17:19 Temperature 98.4 F 97.9 F Pulse Rate 102 H 99 Respiratory 18 18 Rate Blood Pressure 105/69 110/72 O2 Sat by Pulse 94 L 97 Oximetry Procedures - Incision & Drainage Consent Obtained: verbal consent Site: hand (Right index finger) Anesthetic Used: lidocaine 1%, without epi Scalpel Used: #11 Culture Obtained?: Yes Patient Tolerated Procedure: well - Nerve Block Consent Obtained: verbal consent Local Anesthetic Used: Lidocaine 1% Side: right Nerve Blocks: digital Procedure Successful: Yes Complications: none Patient Tolerated Procedure: well Medical Decision Making - Medical Decision Making Was pt. sent in by a medical professional or institution (Dr. PA, MAGICIAN HELPER, urgent care, hospital, or halfway...) When possible be specific @ -No Did you speak to anyone other than the patient for history (EMS, parent, family, police, friend...)? What history was obtained from this source @ -No Did you review nursing and triage notes (agree or disagree)? Why? @ -I reviewed and agree with nursing and triage notes Were old charts reviewed (outside hosp., previous admission, EMS record, old EKG, old radiological studies, urgent care reports/EKG's, halfway records)? Report findings @ -No old charts were reviewed Differential Diagnosis (chest pain, altered mental status, abdominal pain women, abdominal pain men, vaginal bleeding, weakness, fever, dyspnea, syncope, headache, dizziness, GI bleed, back pain, seizure, CVA, palpatations, mental health, musculoskeletal)? @ -Differential includes felon, paronychia, fracture, this is not an all- inclusive list EKG interpreted by me (3pts min.). @ -As above X-rays interpreted by me (1pt min.). @ -X-ray shows no acute osseous abnormality CT interpreted by me (1pt min.). @ -None done U/S interpreted by me (1pt. min.). @ -None done What testing was considered but not performed or refused? (CT, X-rays, U/S, labs)? Why? @ -None What meds were considered but not given or refused? Why? @ -None Did you discuss the management of the patient with other professionals (professionals i.e. DrDebbie, PA, MAGICIAN HELPER, lab, RT, psych nurse, social science instructor, firebrick layer helper, teacher, police liaison officer, ed case manager)? Give summary @ -No Was smoking cessation discussed for >3mins.? @ -No Was critical care preformed (if so, how long)? @ -No Were there social determinants of health that impacted care today? How? (Homelessness, low income, unemployed, alcoholism, drug addiction, transportation, low edu. Level, literacy, decrease access to med. care, retirement, rehab)? @ -No Was there de-escalation of care discussed even if they declined (Discuss DNR or withdrawal of care, Hospice)? DNR status @ -No What co-morbidities impacted this encounter? (DM, HTN, Smoking, COPD, CAD, Cancer, CVA, ARF, Chemo, Hep., AIDS, mental health diagnosis, sleep apnea, morbid obesity)? @ -None Was patient admitted / discharged? Hospital course, mention meds given and route, prescriptions, significant lab abnormalities, going to OR and other perti nent info. @ -58-year-old female presenting with chief complaint of pain redness and swelling to the right index finger. Particularly to the distal end. Was seen at her PCPs office on and started on Bactrim. History of MRSA. On examination there is a large paronychia noted with pus coming just below the surface of the skin. There is some swelling of the more proximal finger, I suspect this is just inflammatory. Able to actively flex and extend the finger. Digital block is performed and incision and drainage is performed. I am able to express a very large amount of pus and cultures obtained. Patient is educated on wound care. Continue taking Bactrim. She has a follow-up appointment on Friday. Discharged. Follow-up with PCP. Report back to ER with any new or worsening symptoms. Discussed return parameters and answered all questions. Patient conveyed verbal understanding and agreed to the plan. I discussed this case in detail with my attending Dr. Gallardo Undiagnosed new problem with uncertain prognosis? @ -No Drug Therapy requiring intensive monitoring for toxicity (Heparin, Nitro, Insulin, Cardizem)? @ -No Were any procedures done? @ -Incision and drainage, digital block Diagnosis/symptom? @ -Paronychia Acute, or Chronic, or Acute on Chronic? @ -Acute Uncomplicated (without systemic symptoms) or Complicated (systemic symptoms)? @ -Uncomplicated Side effects of treatment? @ -No Exacerbation, Progression, or Severe Exacerbation? @ -No Poses a threat to life or bodily function? How? (Chest pain, [place], [place], pneumonia, PE, COPD, DKA, ARF, appy, cholecystitis, CVA, Diverticulitis, Homicidal, Suicidal, threat to staff... and all critical care pts) @ -Unlikely Disposition Clinical Impression: Paronychia Disposition: HOME SELF-CARE Condition: Good Instructions (If sedation given, give patient instructions): Akiko (ED) Additional Instructions: Follow-up with your PCP at your scheduled appointment on Friday. Report back to ER with any new or worsening symptoms. Continue taking your Bactrim as prescribed. Use warm compresses frequently throughout the day to help express any remaining pus. Move the finger frequently. Is patient prescribed a controlled substance at d/c from ED?: No Referrals: Ayaan Morales MD [Primary Care Provider] - 1-2 days Time of Disposition: 16:56
--- NOTE | 2024-03-07 16:29 | XR ---
EXAMINATION TYPE: XR finger RT DATE OF EXAM: 03/07/2024 4:23 PM COMPARISON: None available. CLINICAL INDICATION: Female, 58 years old with history of Pointer finger infection; [facility] TECHNIQUE: XR finger RT Frontal, lateral and oblique views were obtained. FINDINGS: Soft tissue swelling of the second digit without acute fracture or dislocation. No focal os seous erosion or aggressive periosteal reaction. No expected of a foreign body. IMPRESSION: Soft tissue swelling of the second digit without evidence of acute osseous abnormality. [facility], , 03/07/2024 4:27 PM
[2024-03-07 17:20] VITALS: BP 110/72; PULSE 99; TEMP 97.9
== END 2024-03-07 17:22 | disposition home or self-care (01) ==
LOC: EC 15:43
DX: L03.011 Cellulitis of right finger (principal)
CPT/HCPCS: 87070; 87205; 73140; 26010; 99283; J2003